=== PATIENT | female | born 1925 | race Caucasian/White ===

== ENCOUNTER 2017-08-13 13:40 | Emergency (ER) | payer MEDICARE, MEDICAID ==
[~2017-08-13] VITALS: Ht 5200 cm; Wt 51.8 kg
[~2017-08-13 13:40] MED LIST: ALB0.5UD IH; AMLO10TA4 PO; ASPI-1265 PO; DICL100G15 TOP; DOCU-28 PO; HYDR-565 PO; LACT-47; LEVO50TA66 PO; LISI40TA4
[2017-08-13 14:23] VITALS: BP 150/61
== END 2017-08-13 14:49 | disposition home or self-care (01) ==
LOC: ER 13:40
DX: S60.212A Contusion of left wrist, initial encounter (principal); I10 Essential (primary) hypertension; K21.9 Gastro-esophageal reflux disease without esophagitis; E03.9 Hypothyroidism, unspecified; M19.90 Unspecified osteoarthritis, unspecified site; G89.29 Other chronic pain; Z79.82 Long term (current) use of aspirin; Z79.899 Other long term (current) drug therapy; W18.2XXA Fall in (into) shower or empty bathtub, initial encounter; Y93.89 Activity, other specified; Y92.89 Other specified places as the place of occurrence of the external cause; Y99.8 Other external cause status
CPT/HCPCS: 29125; 73110; 99284